=== PATIENT | female | born 1975 | race Two or more races ===

== ENCOUNTER 2016-07-14 22:06 | Emergency (ER) | payer OTHER ==
[2016-07-14] MEDS ORDERED: IOPAMIDOL 370 (76%) 100 ML VIAL IV ONE (22:07)
[2016-07-14 23:33] LABS: ABSOLUTE NEUTROPHIL COUNT 7.5 K/mm3 (1.8-7.7); BASO % 0.2 % (0.2-1.0); EOS # 0.1 (0.0-0.5); EOS % 0.5 % (0.9-2.9); HEMATOCRIT 37.3 % (37.0-47.0); HEMOGLOBIN 12.1 gm/l (12.0-16.0); IMM NEUT% 0.2 % (0-1); LYMPH # 2.1 (1.0-4.8); LYMPH % 20.6 % (15-45); MEAN CELL VOLUME 84.4 fl (81.0-99.0); MEAN CORPUSCULAR HEMOGLOBIN 27.4 pg (27.0-31.0); MEAN CORPUSCULAR HGB CONC 32.4 g/dl (33.0-37.0); MEAN PLATELET VOLUME 9.5 fl (7.4-10.4); MONO # 0.6 (0.0-0.8); MONO % 5.4 % (4-12); NEUT % 73.1 % (43-75); PLATELET COUNT 230 K/mm3 (130-400); RED CELL DISTRIBUTION WIDTH 13.1 % (11.5-14.5)
[2016-07-15 01:36] LABS: SPECIFIC GRAVITY 1.025 (1.001-1.030); URINE APPEARANCE CLEAR; URINE BILIRUBIN NEGATIVE (NEGATIVE); URINE BLOOD NEGATIVE (NEGATIVE); URINE COLOR YELLOW; URINE GLUCOSE (UA) NEGATIVE (NEGATIVE); URINE LEUKOCYTE ESTERASE NEGATIVE (NEGATIVE); URINE NITRITE NEGATIVE (NEGATIVE); URINE PROTEIN NEGATIVE (NEGATIVE); URINE UROBILINOGEN NORMAL (0-1 mg/dl)
--- NOTE | 2016-07-15 08:16 | CT ---
Name: LAVINIA JASSO Exam: CT Angiogram of the chest with contrast Comparison: None Clinical History:Shortness of breath and dizziness Procedure: Helical CT using multidetector technique was applied to the chest during rapid intravenous administration of 80 cc Isovue-370. MIP reconstructions were obtained on the CT scanner. Automated dose reduction technique was used to minimize patient radiation dose. Findings: CT angiogram of the chest (contrast enhanced): Heart is nonenlarged. There is no pericardial effusion. Aorta is normal caliber. There is a common trunk for the innominate artery and and left common carotid artery which is a normal variant. Also, the left vertebral artery arises from the aortic arch. Injection was made via the right. Limited views of thyroid gland are normal. There is no suspicious axillary mediastinal or hilar adenopathy. Small calcified lymph nodes are noted within the mediastinum. Large airways are clear. Granulomas are identified bilaterally. There is no pulmonary embolus. Structures below the diaphragm included on this exam are within normal limits. Regional skeleton is unremarkable for the patient's age. Impression: 1. No pulmonary embolus 2. Prior granulomatous infection Note: Findings were transmitted to the emergency Department from stat rad at 0054 hours
== END 2016-07-15 02:13 | disposition left against medical advice (07) ==
LOC: ED 22:06
DX: R06.02 Shortness of breath (principal)
CPT/HCPCS: 84703; 85025; 80048; 81003; 71275; 99283 ×2; Q9967